=== PATIENT | female | born 1965 | race Caucasian/White ===

== ENCOUNTER 2019-02-18 20:16 | Emergency (ER) | payer BC ==
[~2019-02-18] VITALS: Ht 160 cm; Wt 88.5 kg
[2019-02-18 20:43] LABS: BASOPHIL % 0.5 % (0-2); PLATELET COUNT 341 x10^3mcL (130-400); RED CELL DISTRIBUTION WIDTH 13.4 % (11.5-14.5)
[2019-02-18 20:49] LABS: CALCIUM 9.4 mg/dL (8.5-10.1); CARBON DIOXIDE 25.8 mmol/L (21-32); CHLORIDE SERUM 108 mmol/L (98-107); GFR1 > 60 mL/min; GLUCOSE SERUM 113 mg/dL (74-106); POTASSIUM SERUM 4.1 mmol/L (3.5-5.1); SODIUM SERUM 143 mmol/L (136-145)
[2019-02-18 20:53] LABS: ALBUMIN 3.8 g/dL (3.4-5.0); ALKALINE PHOSPHATASE 103 U/L (46-116); ALT/SGPT 52 U/L (14-59); AST/SGOT 26 U/L (15-37); BILIRUBIN TOTAL 0.4 mg/dL (0.20-1.00)
[2019-02-18 20:54] LABS: TOTAL PROTEIN, SERUM 8.3 g/dL (6.4-8.2)
[2019-02-19 00:35] VITALS: BP 123/71
== END 2019-02-19 00:35 | disposition home or self-care (01) ==
LOC: ED 20:16
DX: R07.89 Other chest pain (principal); R19.7 Diarrhea, unspecified; Z88.0 Allergy status to penicillin; Z88.2 Allergy status to sulfonamides; Z88.6 Allergy status to analgesic agent; Z88.5 Allergy status to narcotic agent
CPT/HCPCS: 36415; 83880

== ENCOUNTER 2020-04-21 20:31 | Emergency (ER) | payer SELFPAY ==
[~2020-04-21] VITALS: Ht 160 cm; Wt 81.6 kg
[2020-04-21 20:34] VITALS: Ht 160 cm; Wt 81.6 kg
[2020-04-21 21:14] VITALS: BP 145/98
== END 2020-04-21 21:14 | disposition home or self-care (01) ==
LOC: ED 20:31
DX: R50.9 Fever, unspecified (principal); M79.10 Myalgia, unspecified site; R43.8 Other disturbances of smell and taste; Z20.828 Contact with and (suspected) exposure to other viral communicable diseases; Z88.0 Allergy status to penicillin; Z88.2 Allergy status to sulfonamides; Z88.8 Allergy status to other drugs, medicaments and biological substances
CPT/HCPCS: U0003